=== PATIENT | female | born 1970 | race Caucasian/White ===

== ENCOUNTER 2023-07-27 06:00 | Outpatient (CLI) | payer OTHER, SELFPAY ==
[2023-07-27 12:43] LABS: Anion Gap 10.6 mmol/L (3-11); BUN 16 mg/dL (7-18); CO2 25.4 mmol/L (21.0-32.0); Calcium 9.5 mg/dL (8.5-10.1); Calculated LDL 175 mg/dL (<100); Chloride 103 mmol/L (98-107); Cholesterol 268 mg/dL (<200); Estimated GFR 67.36 (mL/min/1.73m2); Glucose 101 mg/dL (74-106); HDL Cholesterol 62 mg/dL (40-60); Sodium 139 mmol/L (136-145); TSH (W/Ref FT4) 3.95 uIU/mL (0.36-3.74); Triglyceride 156 mg/dL (<150)
[2023-07-27 13:13] LABS: FREE T4 0.84 ng/dL (0.76-1.46)
[2023-07-27 17:51] LABS: Estradiol 58 pg/mL (See Note)
[2023-07-27 19:45] LABS: FSH 33.4 mIU/mL (See Note)
[2023-07-31 15:47] LABS: Testosterone, Free 0.25 ng/dL (<0.13-0.92); Testosterone, Total 14 ng/dL (8-60)
== END 2023-07-27 06:01 | disposition home or self-care (01) ==
LOC: LOS 06:00
PROVIDERS: PCP Nurse Practitioner Family; Visit Provider Nurse Practitioner Family
DX: Z79.890 Hormone replacement therapy (principal); Z78.0 Asymptomatic menopausal state; F41.9 Anxiety disorder, unspecified
CPT/HCPCS: 36415; 80048; 80061; 84402; 84403; 82670; 83001; 84439; 84443

== ENCOUNTER 2024-11-08 00:37 | Outpatient (CLI) | payer OTHER, SELFPAY ==
[2024-11-08 14:58] LABS: ALT 29 U/L (14-59); AST 16 U/L (15-37); Albumin 3.7 g/dL (3.4-5.0); Alkaline Phosphatase 92 U/L (46-116); Anion Gap 9.6 mmol/L (3-11); BUN 19 mg/dL (7-18); Bilirubin, Total 0.5 mg/dL (0.2-1.0); CO2 24.4 mmol/L (21.0-32.0); Calcium 9.8 mg/dL (8.5-10.1); Calculated LDL 168 mg/dL (<100); Chloride 106 mmol/L (98-107); Cholesterol 247 mg/dL (<200); Estimated GFR 66.53 (mL/min/1.73m2); Glucose 93 mg/dL (74-106); HDL Cholesterol 52 mg/dL (>or=50); Potassium 4.0 mmol/L (3.5-5.1); Sodium 140 mmol/L (136-145); TSH (W/Ref FT4) 4.22 uIU/mL (0.36-3.74); Total Protein 7.1 g/dL (6.4-8.2); Triglyceride 139 mg/dL (<150)
[2024-11-08 15:27] LABS: ESR 10 mm/hr (0-30)
[2024-11-08 18:02] LABS: Hemoglobin A1C 5.3 % (<5.7)
[2024-11-08 19:21] LABS: C-Reactive Protein < 0.50 mg/dL (<or=0.5)
== END 2024-11-08 00:38 | disposition home or self-care (01) ==
LOC: LOS 00:37
PROVIDERS: PCP Nurse Practitioner Family; Visit Provider Nurse Practitioner Family
DX: R73.01 Impaired fasting glucose; F41.9 Anxiety disorder, unspecified; M06.9 Rheumatoid arthritis, unspecified; G25.0 Essential tremor
CPT/HCPCS: 36415; 80053; 80061; 85652; 83036; 84439; 84443; 86038; 86140; 86431

== ENCOUNTER 2024-11-18 09:49 | Day surgery (SDC) | payer OTHER, SELFPAY ==
--- NOTE | 2024-11-17 18:31 | W.PM.DSUDISC ---
Date of service: 11/18/24 Discharge Plan Disposition Patient Disposition: Home Condition: Good Discharge Details Reason For Visit: screening colonoscopy Attending Provider: Georgi Loaiza Primary Care Provider: Patricia Castaneda Home Meds and New Rx's Prescriptions: Continued famotidine 20 mg tablet 20 mg PO DAILY Benadryl Allergy 50 mg tablet 50 mg PO QHS PRN estradiol [Aicha] 0.05 mg/24 hr patch semiweekly 1 patch transdermal .twice weekly Qty: 8 3RF Rx Instructions: Replace AICHA patch twice weekly. Rotate the sites of application, with an interval of at least 1 week allowed between applications to a particular site. escitalopram oxalate 10 mg tablet 10 mg PO DAILY Qty: 90 3RF progesterone micronized 200 mg capsule 200 mg PO QHS Qty: 90 3RF lorazepam 0.5 mg tablet 0.5 mg PO DAILY PRN (Reason: anxiety) Qty: 10 0RF Rx Instructions: 1-2 tabs as needed for panic attacks semaglutide (weight loss) 0.25 mg/0.5 mL pen injector 0.25 mg subcut QWEEK Qty: 2 0RF Rx Instructions: Concentration: Cyanocobalamin 0.5mg/Semaglutide 1mg/mL Semaglutide and cyanocobalamin for compounding. Patient requires additional drug component to decrease risk of side effects of fatigue Week 1-4: Inject 0.25mL (25 syringe units) once weekly Week 5-8: Inject 0.5mL (50 syringe units) once weekly Week 9-12: Inject 1mL (100 syringe units) once weekly Discharge Instructions Instructions: Colon polyps Additional Instructions: Teresa, was a pleasure meeting you today, and I hope you are comfortable through the procedure and feel well as you transition home. Everything went very smoothly. Your prep was outstanding, and I could see everything fine. I did find, and removed, 1 very small polyp today. I will send this off to the pathologist for them to double check. Polyps, different types, and we use this information to help determine timing of future colonoscopies. Those results will take a week or 2 to get back, but soon as I have that information my office will be in touch. If you need anything in the meantime, please do not hesitate to ask. 1. If tolerated, consume a soft, low fiber diet for 1-2 days. [address] Do not drive, drink alcohol, operate machinery, make critical decisions, or do activities that require coordination or balance for 24 hours. 3. Because air was put into your colon during the procedure, expelling air from your rectum (passing gas or farting) is normal. 4. You may not have a bowel movement for 1-3 days because of the colonoscopy prep. This is normal. 5. Go directly to the emergency room if you notice any of the following: Develop chills (warm to touch), or if you have a thermometer and your temperature is above 101 Difficulty breathing or difficultly swallowing Persistent vomiting Severe abdominal pain, other than gas cramps Severe chest pain Black, tarry stools Any bleeding ? exceeding one tablespoon 6. Call your physician if the site where your intravenous was started becomes red, swollen, painful, and warm to touch. 7. Your physician has reviewed your pre-procedure medications. Please continue to take those medications as previously ordered. You will be given specific information/education regarding any changes to your medications before leaving. Stand Alone Forms: Anesthesia Discharge InstMaye, Bobbi Devries (DSU) Activity:: Activity as Tolerated Diet:: As Tolerated Discharge Orders Discharge Orders: Discharge Order (Routine); Ordered 11/17/24 Ordered By: Georgi Loaiza DS: Diagnosis Discharge Diagnosis (1) Encounter for screening colonoscopy: Status: Acute Asessment and Plan: Follow-up on polypectomy results
--- NOTE | 2024-11-17 18:32 | W.COLOREPORT ---
Date of service: 11/18/24 Time of Service: 11:54 Colonoscopy Report Date of procedure: 11/18/24 Pre-op diagnosis general: screening colonoscopy Post-op diagnosis procedure note: other (Colon polyp) Procedure: colonoscopy with polypectomy Surgeon: Georgi Loaiza Anesthesia Type: General:No Airway Estimated blood loss (mL): 5 Pathology: other (0.25 cm flat polyp at 70 cm) Complications: None Disposition: same day Indications: Eunice is a 54 year old woman who needs a screening colonoscopy Prep: Miralax/Dulcolax Procedure Start Time: 11:32 Procedure End Time: 11:46 Retraction Time: 9 Findings: 0.25 cm flat polyp at 70 cm Procedure Description: After the induction of monitored anesthetic care, and with the patient in left lateral decubitus position, I began by performing an external anorectal exam.? Perineum and skin were normal, as was the anal verge.?? Next, I performed a digital rectal exam.? I did not appreciate any abnormal findings.? Next, I advanced a colonoscope into the rectal vault.? I performed retroflexion.? This was normal.? Using irrigation, I then advanced the colonoscope beyond the rectal folds and into the sigmoid colon before advancing towards the cecum.? The quality of the prep was outstanding.? The scope was noted to be in the cecum by identification of the ileocecal valve and appendiceal orifice.? I then began withdrawing the colonoscope using repeated irrigation as necessary for full evaluation of the colonic mucosa. Around 70 cm from the anal verge I identified a 0.25 cm polyp. ?It appeared flat in character. ?I was able to remove this with a cold forcep polypectomy. ?I examined the site, and there was minimal bleeding. ?Once this was completed, I continued to withdraw the scope and examine the remainder of the colonic mucosa.?Once the scope was withdrawn to the level of the rectum, great care was taken to examine portions of the rectal folds.? Finally, the scope was withdrawn and the patient was brought to the same-day surgery recovery unit as the anesthetic wore off. ?The findings and instructions were shared with the patient prior to discharge. [place] Bowel Prep [place] Bowel Prep Right Colon: 3 Left Colon: 3 Transverse Colon: 3 Total Score: 9
[2024-11-18 10:13] VITALS: BP 127/94; PULSE 91; RESP 16; TEMP 36.5; O2SAT 98
[2024-11-18] MEDS: Lactated Ringers 1,000 ML 80 ML IV (10:36)
--- NOTE | 2024-11-18 10:50 | W.ANESPRE ---
General Info Date of Service Date Performed: 11/18/24 Height: 5 ft 10 in Weight: 94.7 kg Body Mass Index (BMI): 29.9 Surgical Procedure: Operation Date: 11/18/24 11:20 Proposed Procedure Side Surgeon p Ninfa Loaiza MD Meds Allergies and Home Medications Allergies Allergy/AdvReac Type Severity Reaction Status Date / Time No Known Allergies Allergy Verified 11/18/24 10:07 Home Medication ?Medication ?Instructions ?Recorded diphenhydramine HCl 50 mg tablet 50 mg PO QHS PRN 06/26/23 (Benadryl Allergy) famotidine 20 mg tablet 20 mg PO DAILY 06/26/23 estradiol 0.05 mg/24 hr semiweekly 1 patch transdermal .twice weekly 08/18/23 transdermal patch (Aicha) #8 ea escitalopram oxalate 10 mg tablet 10 mg PO DAILY #90 tabs 03/15/24 progesterone micronized 200 mg 200 mg PO QHS #90 caps 09/09/24 capsule lorazepam 0.5 mg tablet 0.5 mg PO DAILY PRN anxiety #10 10/03/24 tabs semaglutide (weight loss) 0.25 0.25 mg (0.5 mL) subcut QWEEK #2 mL 11/08/24 mg/0.5 mL subcutaneous pen injector Current Visit Medications: Current Medications Generic Name Dose Route Start Last Admin Trade Name Freq PRN Reason Stop Dose Admin Ringer's Solution 1,000 mls @ 80 mls/hr 11/18/24 06:00 11/18/24 10:36 IV 11/18/24 23:59 80 mls/hr INFUSION SHANE Administration IV Miscellaneous Supplies 1 each 11/18/24 06:00 Iv Access IV 11/18/24 23:59 DIRECTED HSANE Sodium Chloride 0 ml 11/18/24 06:00 Normal Saline Flush 10 Ml Syr IV 11/18/24 23:59 PRN PRN Sodium Chloride 0 ml 11/18/24 06:00 Normal Saline 10 Ml Vial IJ 11/18/24 23:59 DIRECTED PRN Sterile Water 0 ml 11/18/24 06:00 Water,Injection,Sterile 10 Ml Vial IJ 11/18/24 23:59 DIRECTED PRN PFSH Active Problems Active Problems: Problem Status Onset Code Encounter for screening colonoscopy Acute Z12.11 Essential tremor Acute G25.0 Weight gain Acute R63.5 Hormone replacement therapy Acute Z79.890 Fibrocystic breast Acute N60.19 Rheumatoid arthritis Chronic M06.9 Anxiety Chronic F41.9 Medical History Medical History Menopause HPV (human papilloma virus) infection Cervical dysplasia Heartburn Surgical History Surgical History S/P LEEP (~2007) History of colposcopy (~2004) H/O breast augmentation History of recent maxillofacial surgery small plates in upper jaw only. Tobacco Smoking/Tobacco Use Status: Never Passive smoking exposure: No Second hand exposure: No Alcohol Alcohol Intake: current Alcohol intake frequency: a few times a week Alcohol type: wine and hard liquor Substance Use Substance use: Occasionally Substance use type: marijuana Details: last use was >12mn ago. Vital Signs and Lab Results Vital Signs Most Recent Vital Signs in EMR: Most Recent Vital Signs Temp Pulse Resp BP Pulse Ox 36.5 C 91 H 16 127/94 H 98 11/18/24 10:13 11/18/24 10:13 11/18/24 10:13 11/18/24 10:13 11/18/24 10:13 Lab Results Complete Metabolic Panel: Sodium, (136-145) 140 mmol/L 11/08/24, 08:06 Potassium, (3.5-5.1) 4.0 mmol/L 11/08/24, 08:06 Chloride, (98-107) 106 mmol/L 11/08/24, 08:06 Carbon Dioxide, (21.0-32.0) 24.4 mmol/L 11/08/24, 08:06 BUN, (7-18) 19 mg/dL H 11/08/24, 08:06 Creatinine, (0.55-1.02) 1.0 mg/dL 11/08/24, 08:06 Est GFR (CKD-EPI 2020), (mL/min/1.73m2) 66.53 11/08/24, 08:06 Calcium, (8.5-10.1) 9.8 mg/dL 11/08/24, 08:06 Albumin, (3.4-5.0) 3.7 g/dL 11/08/24, 08:06 Glucose, (74-106) 93 mg/dL 11/08/24, 08:06 Hemoglobin A1c, (<5.7) 5.3 % 11/08/24, 08:06 C-Reactive Protein, (<or=0.5) < 0.50 mg/dL 11/08/24, 08:06 Liver Function Panel: ALT, (14-59) 29 U/L 11/08/24, 08:06 AST, (15-37) 16 U/L 11/08/24, 08:06 Thyroid Panel: TSH, (0.36-3.74) 4.22 uIU/mL H 11/08/24, 08:06 Anesthesia Assessment and Plan Anesthesia History Personal History: PONV Family History: Other Exercise Tolerance Exercise Tolerance: Metabolic Equivalents>4 Pertinent Negatives Pertinent Negatives: No Symptoms of GERD, No Major Cardiovascular Symptoms or Complaints and No Major Pulmonary Symptoms or Complaints Cardiac & Pulmonary Exam Cardiac Exam: Normal S1/S2 Heart Sounds Pulmonary Exam: Clear Bilateral Breath Sounds Implantable Cardiac Device Does patient have a Pacemaker or an ICD?: No Airway Exam Known Difficult Airway: No Mallampati Class: 2 Mouth Opening: Normal (> 3cm) Thyromental Distance: Less than 3 cm Neck Range of Motion: Full ROM Neck Circumference: Normal Teeth Condition: Normal Dentition ASA Classification ASA Score: ASA 2 Emergency Case?: No NPO Status NPO Status: NPO Clears >2 hours, Solids >8 hours Anesthesia Plan Resuscitation Status: Full Code Anesthesia Technique: General Anesthesia Airway Planned: Natural Airway Monitors Used: Standard Monitors
[2024-11-18 10:52] VITALS: BMI 29.9
--- NOTE | 2024-11-18 11:40 | BOWEL_PTH ---
PATIENT: Eunice Pina LOC: [facility] U#:[id number] AGE/SX: 54/F ROOM: RE11/18/[address]: Georgi Loaiza MD : [id number] BED: DIS: 11/18/2024 SPEC #: [id number] RECD: 11/18/24 12:46 STATUS: TERE REQ #: [id number] RUDY: 11/18/24 11:[address]: Georgi Loaiza DEPT: Surgical Specimen RECD BY: Constanza Murray ENTERED: 11/18/24 12:46 SP TYPE: Bowel OTHR DR: Patricia Castaneda, ROSA Tissues: 1 - BIOPSY BOWEL Procedures: GROSS AND MICRO LEVEL 4 Comments: [id number]
[2024-11-18 11:51] VITALS: BP 120/88; PULSE 68; RESP 16; TEMP 36; O2SAT 96
[2024-11-18 12:18] VITALS: BP 107/52; PULSE 67; RESP 16; TEMP 36.1; O2SAT 97
--- NOTE | 2024-11-18 14:11 | W.ANESPOSTOP ---
Postoperative Evaluation Date, Time and Location Date Performed: 11/18/24 Time Performed: 11:55 Patient Location: Day Surgery Unit Vital Signs Most Recent Imported Vital Signs: Most Recent Vital Signs Temp Pulse Resp BP Pulse Ox 36.1 C L 67 16 107/52 L 97 11/18/24 12:18 11/18/24 12:18 11/18/24 12:18 11/18/24 12:18 11/18/24 12:18 Pain Score Most Recent Pain Score: Most Recent Pain Score Pain Level 0 11/18/24 12:18 Assessment Mental Status: Awake (Alert & Oriented to Patient Baseline) Airway and Respiratory Function: Patent airway with normal (patient baseline) respiratory exam Cardiovascular Function: Hemodynamically Stable Hydration Status: Adequately Hydrated Nausea & Vomiting: No Nausea or Vomiting Pain: Pt. Denies Any Pain Peripheral Nerve Block: Patient did not receive a nerve block
== END 2024-11-18 12:29 | disposition home or self-care (01) ==
LOC: SUR 09:51
PROVIDERS: PCP Nurse Practitioner Family; Visit Provider Surgery
PROC: 0DJD8ZZ Inspection of Lower Intestinal Tract, Via Natural or Artificial Opening Endoscopic (ICD-10-PCS; CPT 45378; principal; 2024-11-18 11:15)
DX: Z12.11 Encounter for screening for malignant neoplasm of colon (principal); D12.4 Benign neoplasm of descending colon
CPT/HCPCS: 45380; 88305; J2003; J2250; J2405; J2704